=== PATIENT | female | born 1980 | race Hispanic/Latino ===

== ENCOUNTER 2022-09-14 06:59 | Emergency (ER) | payer OTHER ==
[~2022-09-14] VITALS: Ht 170.2 cm; Wt 113.4 kg
[2022-09-14] MEDS ORDERED: 0.9%NACL 1000ML 1,000 ML IV ONE (07:30)
[2022-09-14 07:34] LABS: BASOPHILS % (AUTO) 0.1 % (0.0-5.0); HEMATOCRIT 45.6 % (36-48); LYMPHOCYTES % (AUTO) 17.4 % (21.0-51.0); MEAN CORPUSCULAR HEMOGLOBIN 30.6 pg (27.0-33.0); MEAN CORPUSCULAR HGB CONC 34.2 g/dL (32.0-36.0); MEAN CORPUSCULAR VOLUME 89.4 fL (79-99); MONOCYTES % (AUTO) 5.9 % (3.0-13.0); NEUTROPHILS % (AUTO) 76.2 % (40.0-77.0); PLATELET COUNT (AUTO) 347 K/uL (130-400); RED CELL DISTRIBUTION WIDTH 12.4 % (11.0-15.5)
[2022-09-14 07:50] LABS: ALBUMIN 4.4 g/dL (3.5-5.0); CREATININE 0.9 mg/dL (0.5-1.5)
[2022-09-14 07:54] LABS: TOTAL PROTEIN, SERUM 8.5 g/dL (6.0-8.3)
[2022-09-14] MEDS ORDERED: PANTOPRAZOLE 40 MG/VIAL ONE (07:54)
[2022-09-14] MEDS ORDERED: PANTOPRAZOLE 40 MG/VIAL IVP ONE (08:00)
[2022-09-14 08:20] LABS: POTASSIUM 2.8 mmol/L (3.5-5.1)
[2022-09-14] MEDS ORDERED: POTASSIUM BICARB/CIT AC 25 MEQ TABLET.EFF PO STA (08:29)
[2022-09-14] MEDS ORDERED: ONDANSETRON 4MG INJ IVP STA (08:31)
[2022-09-14 08:39] LABS: AMPHET/METH SCREEN,URINE NEGATIVE (NEGATIVE); BARBITURATE SCREEN, URINE NEGATIVE (NEGATIVE); BENZODIAZEPINES SCREEN,URINE NEGATIVE (NEGATIVE); CANNABINOID SCREEN,URINE POSITIVE (NEGATIVE); COCAINE SCREEN,URINE NEGATIVE (NEGATIVE); OPIATE SCREEN,URINE NEGATIVE (NEGATIVE); PHENCYCLIDINE SCREEN,URINE NEGATIVE (NEGATIVE)
[2022-09-14 08:40] LABS: HCG,QUALITATIVE URINE NEGATIVE (NEGATIVE)
[2022-09-14] MEDS ORDERED: KETOROLAC 30MG VIAL (30MG/ML) IVP STA (08:43)
[2022-09-14] MEDS ORDERED: MAG/ALUM/SIMETH 30 ML UDCUP ONE (08:44)
[2022-09-14] MEDS ORDERED: KETOROLAC 30MG VIAL (30MG/ML) ONE (08:44)
[2022-09-14] MEDS ORDERED: LIDOCAINE HCL 2% VISCOUS 15 ML UDCUP ONE (08:44)
[2022-09-14 08:45] LABS: APPEARANCE,URINE CLEAR (CLEAR); BILIRUBIN,URINE NEGATIVE (NEGATIVE); COLOR,URINE YELLOW (YELLOW); GLUCOSE, URINE (UA) 50 mg/dL (NEGATIVE); KETONES,URINE 100 mg/dL (NEGATIVE); LEUKOCYTE ESTERASE ,URINE NEGATIVE Leu/uL (NEGATIVE); NITRATE,URINE NEGATIVE (NEGATIVE); OCCULT BLOOD,URINE LARGE (NEGATIVE); PH,URINE 6.5 (5.0-8.0); PROTEIN,URINE 50 mg/dL (NEGATIVE)
[2022-09-14 08:58] LABS: BACTERIA,URINE RARE /HPF (None Seen); MUCUS,URINE MOD LPF (None Seen); RBC,URINE 26-50 /HPF (0-1); SQUAMOUS EPITHELIAL CELL,UR FEW /HPF (0-2)
[2022-09-14] MEDS ORDERED: PHARMACY COMMUNICATION MISC SCH (09:00)
[2022-09-14] MEDS ORDERED: IOHEXOL 350 MG/ML 100ML INFUS..BTL IV ONE (09:48)
[2022-09-14] MEDS ORDERED: ONDANSETRON 4MG INJ IVP ONE (10:00)
[2022-09-14] MEDS ORDERED: MORPHINE 2 MG SYG IVP ONE (10:00)
[2022-09-14 11:57] VITALS: BP 129/92
[2022-09-14] MEDS ORDERED: FAMO20TA8 PO (12:02)
[2022-09-15] MEDS ORDERED: PROM25TA7 PO (21:11)
[2022-09-15] MEDS ORDERED: SULF1TAB42 PO (21:11)
== END 2022-09-14 12:22 | disposition home or self-care (01) ==
LOC: EDH 06:59
DX: K29.70 Gastritis, unspecified, without bleeding (principal); R11.2 Nausea with vomiting, unspecified; F12.90 Cannabis use, unspecified, uncomplicated; E11.9 Type 2 diabetes mellitus without complications; Z90.49 Acquired absence of other specified parts of digestive tract; Z98.890 Other specified postprocedural states
CPT/HCPCS: 99285; 74177; 96374; 96375; 96361; 83735; 84484; 80053; 80305; 83690; 85025; 82948; 81025; 36415; 96376; 93005; 81001; J7030; J2405 ×2; J1885; C9113; Q9967

== ENCOUNTER 2022-09-15 13:41 | Emergency (ER) | payer OTHER ==
[~2022-09-15] VITALS: Ht 170.2 cm; Wt 113.4 kg
[~2022-09-15 13:41] MED LIST: FAMO20TA8 PO
[2022-09-15] MEDS ORDERED: ONDANSETRON 4MG INJ IVP ONE (15:30)
[2022-09-15] MEDS ORDERED: FAMOTIDINE 20MG VIAL IV ONE (15:30)
[2022-09-15] MEDS ORDERED: 0.9%NACL 1000ML 1,000 ML IV SCH (15:30)
[2022-09-15] MEDS ORDERED: PANTOPRAZOLE 40 MG/VIAL ONE (16:08)
[2022-09-15] MEDS ORDERED: KETOROLAC 30MG VIAL (30MG/ML) IVP ONE (16:30)
[2022-09-15] MEDS ORDERED: PANTOPRAZOLE 40 MG/VIAL IVP ONE (16:30)
[2022-09-15] MEDS ORDERED: DICYCLOMINE 20MG (10MG/ML) AMP IM ONE (17:00)
[2022-09-15 17:01] LABS: BASOPHILS % (AUTO) 0.2 % (0.0-5.0); HEMATOCRIT 45.7 % (36-48); LYMPHOCYTES % (AUTO) 9.5 % (21.0-51.0); MEAN CORPUSCULAR HGB CONC 34.1 g/dL (32.0-36.0); MEAN CORPUSCULAR VOLUME 90.7 fL (79-99); MONOCYTES % (AUTO) 3.1 % (3.0-13.0); NEUTROPHILS % (AUTO) 86.9 % (40.0-77.0); PLATELET COUNT (AUTO) 321 K/uL (130-400); RED BLOOD CELL COUNT(AUTO) 5.04 MIL/uL (4.00-5.50); RED CELL DISTRIBUTION WIDTH 12.5 % (11.0-15.5); WHITE BLOOD COUNT (AUTO) 12.8 K/uL (4.8-10.8)
[2022-09-15 17:07] LABS: APPEARANCE,URINE CLEAR (CLEAR); BILIRUBIN,URINE NEGATIVE (NEGATIVE); COLOR,URINE YELLOW (YELLOW); GLUCOSE, URINE (UA) 50 mg/dL (NEGATIVE); KETONES,URINE 150 mg/dL (NEGATIVE); LEUKOCYTE ESTERASE ,URINE NEGATIVE Leu/uL (NEGATIVE); NITRATE,URINE NEGATIVE (NEGATIVE); OCCULT BLOOD,URINE SMALL (NEGATIVE); PH,URINE 7.5 (5.0-8.0); PROTEIN,URINE 20 mg/dL (NEGATIVE); UROBILINOGEN,URINE 0.2 mg/dL (0.2-1.0)
[2022-09-15 17:16] LABS: ALBUMIN 4.4 g/dL (3.5-5.0); CREATININE 0.8 mg/dL (0.5-1.5); TOTAL PROTEIN, SERUM 8.1 g/dL (6.0-8.3)
[2022-09-15 17:20] LABS: BACTERIA,URINE RARE /HPF (None Seen); MUCUS,URINE FEW LPF (None Seen); SQUAMOUS EPITHELIAL CELL,UR FEW /HPF (0-2)
[2022-09-15 17:24] LABS: AMPHET/METH SCREEN,URINE NEGATIVE (NEGATIVE); BARBITURATE SCREEN, URINE NEGATIVE (NEGATIVE); BENZODIAZEPINES SCREEN,URINE NEGATIVE (NEGATIVE); CANNABINOID SCREEN,URINE POSITIVE (NEGATIVE); COCAINE SCREEN,URINE NEGATIVE (NEGATIVE); OPIATE SCREEN,URINE NEGATIVE (NEGATIVE); PHENCYCLIDINE SCREEN,URINE NEGATIVE (NEGATIVE)
[2022-09-15] MEDS ORDERED: IOHEXOL 350 MG/ML 100ML INFUS..BTL IV ONE (17:53)
[2022-09-15] MEDS ORDERED: CEFTRIAXONE 1G VIAL IVP ONE ×2 (18:00→19:00)
[2022-09-15] MEDS ORDERED: POTASSIUM CHLORIDE 10MEQ SR TAB PO SCH (19:00)
[2022-09-15] MEDS ORDERED: HALOPERIDOL INJ 5 MG/ML VIAL IV SCH (19:30)
[2022-09-15] MEDS ORDERED: MAG/ALUM/SIMETH 30 ML UDCUP ONE (20:13)
[2022-09-15] MEDS ORDERED: LIDOCAINE HCL 2% VISCOUS 15 ML UDCUP ONE (20:13)
[2022-09-15] MEDS ORDERED: SULF1TAB42 PO (21:11)
[2022-09-15] MEDS ORDERED: PROM25TA7 PO (21:11)
[2022-09-15 21:17] VITALS: BP 118/74
== END 2022-09-15 21:21 | disposition home or self-care (01) ==
LOC: EDH 13:41
DX: N39.0 Urinary tract infection, site not specified (principal); R11.2 Nausea with vomiting, unspecified; F12.90 Cannabis use, unspecified, uncomplicated; E11.9 Type 2 diabetes mellitus without complications; Z90.49 Acquired absence of other specified parts of digestive tract; Z98.890 Other specified postprocedural states; Z79.899 Other long term (current) drug therapy
CPT/HCPCS: 99285; 74177; 96374; 96375; 96361; 80053; 80305; 83690; 85025; 87804 ×2; 36415; 81001; 96372; J3490; J7030; J1630; J0696; J2405; J1885; C9113; J0500; Q9967

== ENCOUNTER 2022-12-24 19:20 | Emergency (ER) | payer OTHER ==
[~2022-12-24] VITALS: Ht 170.2 cm; Wt 113.9 kg
[~2022-12-24 19:20] MED LIST changes: +PROM25TA7 PO; +SULF1TAB42 PO
[2022-12-24] MEDS ORDERED: 0.9%NACL 1000ML 1,000 ML IV ONE (22:00)
[2022-12-24] MEDS ORDERED: MAG/ALUM/SIMETH 30 ML UDCUP PO ONE (22:00)
[2022-12-24] MEDS ORDERED: LIDOCAINE HCL 2% VISCOUS 15 ML UDCUP PO ONE (22:00)
[2022-12-24] MEDS ORDERED: MORPHINE 4 MG SYG IVP ONE (22:00)
[2022-12-24] MEDS ORDERED: ONDANSETRON 4MG INJ IVP ONE (22:00)
[2022-12-24 22:08] LABS: BASOPHILS % (AUTO) 0.1 % (0.0-5.0); HEMATOCRIT 47.1 % (36-48); LYMPHOCYTES % (AUTO) 7.7 % (21.0-51.0); MEAN CORPUSCULAR HEMOGLOBIN 30.5 pg (27.0-33.0); MEAN CORPUSCULAR HGB CONC 33.3 g/dL (32.0-36.0); MEAN CORPUSCULAR VOLUME 91.6 fL (79-99); NEUTROPHILS % (AUTO) 88.9 % (40.0-77.0); PLATELET COUNT (AUTO) 308 K/uL (130-400); RED BLOOD CELL COUNT(AUTO) 5.14 MIL/uL (4.00-5.50); RED CELL DISTRIBUTION WIDTH 12.5 % (11.0-15.5); WHITE BLOOD COUNT (AUTO) 11.9 K/uL (4.8-10.8)
[2022-12-24 22:17] LABS: CREATININE 0.9 mg/dL (0.5-1.5); POTASSIUM 3.7 mmol/L (3.5-5.1)
[2022-12-24 22:22] LABS: ALBUMIN 4.5 g/dL (3.5-5.0); TOTAL PROTEIN, SERUM 8.7 g/dL (6.0-8.3)
[2022-12-24 22:44] LABS: BILIRUBIN,URINE NEGATIVE (NEGATIVE); COLOR,URINE YELLOW (YELLOW); GLUCOSE, URINE (UA) TRACE mg/dL (NEGATIVE); KETONES,URINE 20 mg/dL (NEGATIVE); LEUKOCYTE ESTERASE ,URINE NEGATIVE Leu/uL (NEGATIVE); NITRATE,URINE NEGATIVE (NEGATIVE); OCCULT BLOOD,URINE LARGE (NEGATIVE); PROTEIN,URINE 100 mg/dL (NEGATIVE); UROBILINOGEN,URINE 0.2 mg/dL (0.2-1.0)
[2022-12-24 22:48] LABS: HCG,QUALITATIVE URINE NEGATIVE (NEGATIVE)
[2022-12-24 22:49] LABS: APPEARANCE,URINE CLOUDY (CLEAR)
[2022-12-24 22:50] LABS: BACTERIA,URINE RARE /HPF (None Seen); MUCUS,URINE MANY LPF (None Seen); RBC,URINE 51-100 /HPF (0-1); SQUAMOUS EPITHELIAL CELL,UR MANY /HPF (0-2); WBC,URINE 0-1 /HPF (0-1)
[2022-12-25] MEDS ORDERED: LISINOPRIL 10 MG TABLET PO ONE (00:30)
[2022-12-25] MEDS ORDERED: KETOROLAC 30MG VIAL (30MG/ML) IVP ONE (00:30)
[2022-12-25] MEDS ORDERED: CEPH500B PO (02:05)
[2022-12-25 02:16] VITALS: BP 135/63
[2022-12-25] MEDS ORDERED: CEFTRIAXONE 500MG VIAL IM ONE (02:30)
== END 2022-12-25 02:24 | disposition home or self-care (01) ==
LOC: EDH 19:20
DX: N30.91 Cystitis, unspecified with hematuria (principal); Z90.49 Acquired absence of other specified parts of digestive tract; Z79.899 Other long term (current) drug therapy; Z98.890 Other specified postprocedural states
CPT/HCPCS: 99284; 74176; 96374; 96375 ×2; 80053; 83690; 85025; 81001; 81025; 36415; 96372; J7030; J2405; J2270; J1885; J0696

== ENCOUNTER 2022-12-25 23:16 | Emergency (ER) | payer BC, OTHER ==
[~2022-12-25] VITALS: Ht 170.2 cm; Wt 113.9 kg
[~2022-12-25 23:16] MED LIST changes: +CEPH500B PO
[2022-12-25] MEDS ORDERED: ONDANSETRON 4MG INJ ONE (23:40)
[2022-12-25 23:45] LABS: BASOPHILS % (AUTO) 0.3 % (0.0-5.0); EOSINOPHILS % (AUTO) 0.2 % (0.0-8.0); HEMATOCRIT 44.5 % (36-48); LYMPHOCYTES % (AUTO) 25.9 % (21.0-51.0); MEAN CORPUSCULAR HEMOGLOBIN 30.7 pg (27.0-33.0); MEAN CORPUSCULAR HGB CONC 33.3 g/dL (32.0-36.0); MEAN CORPUSCULAR VOLUME 92.3 fL (79-99); MONOCYTES % (AUTO) 6.2 % (3.0-13.0); NEUTROPHILS % (AUTO) 66.9 % (40.0-77.0); PLATELET COUNT (AUTO) 325 K/uL (130-400); RED BLOOD CELL COUNT(AUTO) 4.82 MIL/uL (4.00-5.50); RED CELL DISTRIBUTION WIDTH 12.8 % (11.0-15.5); WHITE BLOOD COUNT (AUTO) 13.1 K/uL (4.8-10.8)
[2022-12-25 23:57] LABS: CREATININE 0.9 mg/dL (0.5-1.5); POTASSIUM 3.4 mmol/L (3.5-5.1)
[2022-12-26] MEDS ORDERED: 0.9%NACL 1000ML 1,000 ML IV ONE
[2022-12-26] MEDS ORDERED: KETOROLAC 30MG VIAL (30MG/ML) IVP ONE
[2022-12-26 00:01] LABS: ALBUMIN 4.3 g/dL (3.5-5.0)
[2022-12-26 00:02] LABS: APPEARANCE,URINE CLOUDY (CLEAR); BILIRUBIN,URINE NEGATIVE (NEGATIVE); COLOR,URINE YELLOW (YELLOW); GLUCOSE, URINE (UA) 70 mg/dL (NEGATIVE); KETONES,URINE 20 mg/dL (NEGATIVE); LEUKOCYTE ESTERASE ,URINE 75 Leu/uL (NEGATIVE); NITRATE,URINE NEGATIVE (NEGATIVE); OCCULT BLOOD,URINE LARGE (NEGATIVE); PH,URINE 5.5 (5.0-8.0); PROTEIN,URINE 30 mg/dL (NEGATIVE); UROBILINOGEN,URINE 0.2 mg/dL (0.2-1.0)
[2022-12-26 00:05] LABS: HCG,QUALITATIVE URINE NEGATIVE (NEGATIVE)
[2022-12-26 00:12] LABS: BACTERIA,URINE RARE /HPF (None Seen); MUCUS,URINE FEW LPF (None Seen); RBC,URINE TNTC /HPF (0-1); SQUAMOUS EPITHELIAL CELL,UR MOD /HPF (0-2); URIC ACID CRYSTALS,URINE MANY /LPF (None Seen); WBC,URINE 0-1 /HPF (0-1)
[2022-12-26] MEDS ORDERED: ONDANSETRON 4MG INJ IVP ONE ×2 (00:30)
[2022-12-26] MEDS ORDERED: MORPHINE 4 MG SYG IVP ONE (00:30)
[2022-12-26] MEDS ORDERED: POTASSIUM BICARB/CIT AC 25 MEQ TABLET.EFF PO ONE (01:00)
[2022-12-26 01:07] VITALS: BP 152/80
== END 2022-12-26 01:19 | disposition home or self-care (01) ==
LOC: EDH 23:16
DX: M94.0 Chondrocostal junction syndrome [Tietze] (principal); N30.90 Cystitis, unspecified without hematuria; Z79.899 Other long term (current) drug therapy; Z98.51 Tubal ligation status
CPT/HCPCS: 99284; 96374; 71045; 96361; 96375 ×2; 82150; 84484; 80053; 85025; 87088; 81001; 81025; 36415; 93005; 96376; J7030; J2405 ×2; J1885; J2270

== ENCOUNTER 2024-02-21 18:17 | Emergency (ER) | payer BC ==
[~2024-02-21] VITALS: Ht 170.2 cm; Wt 121.1 kg
[2024-02-21 22:12] LABS: BASOPHILS # (AUTO) 0.03 K/uL (0.00-0.20); BASOPHILS % (AUTO) 0.3 % (0.0-5.0); HEMATOCRIT 45.8 % (36-48); IMMATURE GRANULOCYTE ABSOLUTE 0.03 K/uL (0-1); LYMPHOCYTES # (AUTO) 1.8 K/uL (1.0-4.8); MEAN CORPUSCULAR HEMOGLOBIN 30.2 pg (27.0-33.0); MEAN CORPUSCULAR HGB CONC 33.6 g/dL (32.0-36.0); MEAN CORPUSCULAR VOLUME 89.8 fL (79-99); MONOCYTES # (AUTO) 0.8 K/uL (0.1-1.0); MONOCYTES % (AUTO) 7.4 % (3.0-13.0); NEUTROPHILS # (AUTO) 8.1 K/uL (1.8-7.7); PLATELET COUNT (AUTO) 341 K/uL (130-400); RED CELL DISTRIBUTION WIDTH 12.2 % (11.0-15.5); WHITE BLOOD COUNT (AUTO) 10.8 K/uL (4.8-10.8)
[2024-02-21 22:13] LABS: CREATININE 0.8 mg/dL (0.5-1.0); POTASSIUM 3.2 mmol/L (3.5-5.1)
[2024-02-21 22:18] LABS: ALBUMIN 4.1 g/dL (3.5-5.0); BILIRUBIN,TOTAL 0.7 mg/dL (0.2-1.0); TOTAL PROTEIN, SERUM 8.2 g/dL (6.0-8.3)
[2024-02-21 22:55] LABS: ADD UA MICROSCOPIC YES; APPEARANCE,URINE CLOUDY (CLEAR); BILIRUBIN,URINE NEGATIVE (NEGATIVE); COLOR,URINE LIGHT-ORANGE (YELLOW); GLUCOSE, URINE (UA) NEGATIVE (NEGATIVE); KETONES,URINE 10 mg/dL (NEGATIVE); LEUKOCYTE ESTERASE ,URINE 250 Leu/uL (NEGATIVE); NITRATE,URINE NEGATIVE (NEGATIVE); OCCULT BLOOD,URINE LARGE (NEGATIVE); PROTEIN,URINE 50 mg/dL (NEGATIVE); UROBILINOGEN,URINE 0.2 mg/dL (0.2-1.0)
[2024-02-21 23:00] LABS: BACTERIA,URINE MOD /HPF (None Seen); MUCUS,URINE MANY LPF (None Seen); RBC,URINE TNTC /HPF (0-1); SQUAMOUS EPITHELIAL CELL,UR MANY /HPF (0-2)
[2024-02-21] MEDS ORDERED: ONDA4TAB10 PO (23:11)
[2024-02-21] MEDS ORDERED: AMOX1TAB16 PO (23:11)
[2024-02-21 23:15] VITALS: BP 147/76; PULSE 79; RESP 18; O2SAT 99
[2024-02-21] MEDS: AMOX/CLAV 875/125MG TAB PO SCH (23:34)
== END 2024-02-22 00:12 | disposition home or self-care (01) ==
LOC: EDH 18:17
DX: N30.01 Acute cystitis with hematuria (principal); E11.65 Type 2 diabetes mellitus with hyperglycemia; Z79.899 Other long term (current) drug therapy; Z98.890 Other specified postprocedural states
CPT/HCPCS: 36415; 80053; 81001; 83690; 85025; 87088; 93005